=== PATIENT | female | born 1975 | race Caucasian/White ===

== ENCOUNTER 2016-11-16 18:24 | Inpatient (IN) | payer SELFPAY ==
[2016-11-16] MEDS ORDERED: PROPOFOL 100 ML IV PRN (18:38)
[2016-11-16] MEDS ORDERED: ROCURONIUM BROMIDE INJ 50 MG/5 ML VIAL IV ONE ×2 (18:38→19:23)
[2016-11-16] MEDS ORDERED: ETOMIDATE INJ/PF 20 MG/10 ML SDV IV ONE (18:38)
[2016-11-16] MEDS ORDERED: NORMAL SALINE 1000 ML 1,000 ML IV ONE ×2 (18:39→19:28)
--- NOTE | 2016-11-16 18:41 | ER Document Report ---
ED Psych Disorder / Suicide - General Chief Complaint: Overdose Stated Complaint: POSSIBLE OVERDOSE Time Seen by Provider: 11/16/16 18:37 Notes: The patient is a 40-year-old female who presents by EMS after she was found to be altered and unresponsive by her 11-year-old daughter. She had an empty bottle of Flexeril next to her and may have taken 300 mg Flexeril. Family told EMS that the patient has no history of depression or suicide attempts. Arrival to the ER,the patient is very altered and will not respond to painful stimulation. No gag reflex. The decision was made to intubate the patient for airway protection. TRAVEL OUTSIDE OF THE [place] IN LAST 30 DAYS: No - Related Data Allergies/Adverse Reactions: metronidazole [From Flagyl] Allergy (Verified 02/28/16 23:41) tramadol Allergy (Verified 02/28/16 23:41) Past Medical History - General Information source: Emergency Med Personnel Cannot obtain history due to: Altered mental status - Social History Smoking Status: Unknown if Ever Smoked Family History: None Past Surgical History: Reports: Hx Cholecystectomy, Hx Orthopedic Surgery - knee , Hx Tubal Ligation Review of Systems - Review of Systems -: Yes ROS unobtainable due to patient's medical condition Physical Exam - Vital signs Vitals: Pulse Resp Pulse Ox 104 H 17 97 11/16/16 18:24 11/16/16 18:24 11/16/16 18:24 - Notes Notes: PHYSICAL EXAMINATION: GENERAL: Unresponsive. HEAD: Atraumatic, normocephalic. EYES: Pupils 3mm b/l non-reactive, extraocular movements intact, no nystagmus, sclera anicteric, conjunctiva are normal. ENT: no gag reflex, nares patent, oropharynx clear without exudates. Moist mucous membranes. NECK: Normal range of motion, supple without lymphadenopathy LUNGS: Breath sounds clear to auscultation bilaterally and equal. No wheezes rales or rhonchi. HEART: Tachycardic ABDOMEN: Soft, nontender, normoactive bowel sounds. No guarding, no rebound. No masses appreciated. EXTREMITIES: Normal range of motion, no pitting or edema. No cyanosis. NEUROLOGICAL: Unresponsive to painful stimulation, intermittently moves all 4 extremities SKIN: Warm, Dry, normal turgor, no rashes or lesions noted. Course - Re-evaluation Re-evalutation: Pt intubated on arrival to the ER after her decreased mental status and unresponsiveness to painful stimulation. No gag reflex. EMS thinks that the time of ingestion was 17:30. The Flexeril bottle was filled today and all 30 tabs (10 mg each) were missing from it. 11/16/16 18:58 Spoke to [facility] (EFFIE Walsh). Flexeril has some anticholinergic effects with respiratory depressions and AMS. No specific antidotes. Recommends Benzo as needed for agitation and seizures. Half life for Flexeril is 8-37 hours (average 18 hours). Supportive care. 11/16/16 20:[address] Wilson and will admit patient to ICU as Inpatient. - Vital Signs Vital signs: Temp Pulse Resp BP Pulse Ox 97.3 F 104 H 12 102/72 100 11/16/16 19:46 11/16/16 18:24 11/16/16 19:46 11/16/16 19:46 11/16/16 19:46 - Laboratory Result Diagrams: 11/16/16 18:50 11/16/16 18:50 Laboratory results interpreted by me: 11/16/16 11/16/16 18:50 18:50 Seg Neutrophils % 79.9 H Absolute Neutrophils 8.4 H Salicylates < 1.0 L Acetaminophen < 10 L - Diagnostic Test Radiology reviewed: Image reviewed, Reports reviewed - EKG Interpretation by Tx EKG shows normal: Sinus rhythm, [place], Intervals, QRS Complexes, ST-T Waves Procedures - Intubation Orotracheal Time of Intubation: 18:40 Airway evaluation: Normal anatomy Mallampati Classification: Class 1 Medications: Etomidate, Other - Rocuronium Intubation method: Orotracheal Blade type: Levi Blade size: 4 Equipment used: Glidescope ETT size: 7.5 ETT secured at: Teeth ETT secured at (cm): 22 Breath Sounds after Intubation: Equal End tidal CO2 confirmed: Yes Ventilator settings: AC Tidal volume: 500 FiO2: 40 Respirations: 14 PEEP: 5 Post Intubation Xray: Yes Intubation Complications: No complications Critical Care Note - Critical Care Note Total time excluding time spent on procedures (mins): 45 Discharge - Discharge Clinical Impression: Overdose Qualifiers: Encounter type: initial encounter Injury intent: undetermined intent Qualified Code(s): T50.904A - Poisoning by unspecified drugs, medicaments and biological substances, undetermined, initial encounter Respiratory failure Qualifiers: Chronicity: acute Respiratory failure complication: unspecified whether with hypoxia or hypercapnia Qualified Code(s): J96.00 - Acute respiratory failure, unspecified whether with hypoxia or hypercapnia Altered mental state Qualifiers: Altered mental status type: unspecified Qualified Code(s): R41.82 - Altered mental status, unspecified Condition: Serious Disposition: ADMITTED INPATIENT Admitting Provider: [facility] Unit Admitted: ICU
[2016-11-16 19:16] LABS: ABSOLUTE LYMPHOCYTES (AUTO) 1.6 10^3/uL (0.5-4.7); ABSOLUTE MONOCYTES (AUTO) 0.5 10^3/uL (0.1-1.4); ABSOLUTE NEUT (AUTO) 8.4 10^3/uL (1.7-8.2); BASOPHILS % (AUTO) 0.2 % (0-2); EOSINOPHILS % (AUTO) 0.4 % (0-6); HEMATOCRIT 36.7 % (36.0-47.0); HEMOGLOBIN 12.5 g/dL (12.0-15.5); HGB HCT DIFFERENCE 0.8; LYMPHOCYTES % (AUTO) 14.9 % (13-45); MEAN CORPUSCULAR HEMOGLOBIN 31.5 pg (27.0-33.4); MEAN CORPUSCULAR HGB CONC 34.1 g/dL (32.0-36.0); MEAN CORPUSCULAR VOLUME 92 fl (80-97); MONOCYTES % (AUTO) 4.6 % (3-13); RED BLOOD COUNT 3.99 10^6/uL (3.72-5.28); SEGMENTED NEUTROPHILS % (AUTO) 79.9 % (42-78); WHITE BLOOD COUNT 10.5 10^3/uL (4.0-10.5)
[2016-11-16 19:40] LABS: ALANINE AMINOTRANSFERASE 28 U/L (9-52); ALBUMIN 3.9 g/dL (3.5-5.0); ALKALINE PHOSPHATASE 73 U/L (38-126); ANION GAP 13 (5-19); ASPARTATE AMINO TRANSFERASE 21 U/L (14-36); BILIRUBIN,DIRECT 0.4 mg/dL (0.0-0.4); BILIRUBIN,TOTAL 0.9 mg/dL (0.2-1.3); BLOOD UREA NITROGEN 10 mg/dL (7-20); CALCIUM 8.8 mg/dL (8.4-10.2); CARBON DIOXIDE 24 mmol/L (22-30); CHLORIDE 106 mmol/L (98-107); CREATININE RESULT 0.84 mg/dL (0.52-1.25); GLUCOSE 91 mg/dL (75-110); POTASSIUM 3.9 mmol/L (3.6-5.0); SODIUM 143.2 mmol/L (137-145); TOTAL PROTEIN 6.9 g/dL (6.3-8.2)
[2016-11-16 19:42] LABS: APPEARANCE,URINE CLEAR; BILIRUBIN,URINE NEGATIVE (NEGATIVE); GLUCOSE, URINE NEGATIVE (NEGATIVE); KETONES,URINE NEGATIVE (NEGATIVE); LEUKOCYTE ESTERASE,URINE NEGATIVE (NEGATIVE); NITRITE,URINE NEGATIVE (NEGATIVE); PROTEIN,URINE NEGATIVE (NEGATIVE); URINE SPECIFIC GRAVITY 1.013; UROBILINOGEN,URINE NEGATIVE mg/dL (<2.0)
[2016-11-16 19:47] LABS: ALCOHOL < 10 mg/dL (NONE DETECTED)
[2016-11-16 19:56] LABS: URINE BARBITURATES SCREEN NEGATIVE; URINE METHADONE SCREEN NEGATIVE; URINE OPIATES LOW NEGATIVE; URINE PHENCYCLIDINE SCREEN NEGATIVE
[2016-11-16 20:05] LABS: ADD ON TESTING BLD IN LAB ACKNOWLEDGE
[2016-11-16 20:17] LABS: MAGNESIUM 1.9 mg/dL (1.6-2.3)
[2016-11-16] MEDS ORDERED: DEXTROSE 50%-WATER 25 GM/50 ML DISP.SYRIN IV PRN ×2 (21:02)
[2016-11-16] MEDS ORDERED: DEXTROSE 40% GEL 15 GM TUBE PO PRN ×2 (21:02)
[2016-11-16] MEDS ORDERED: GLUCAGON,HUMAN RECOMB 1 MG INJ SUBCUT PRN (21:02)
[2016-11-16] MEDS ORDERED: ACETAMINOPHEN 650 MG SUPP.RECT PR PRN (21:02)
[2016-11-16 21:24] LABS: ARTERIAL BLOOD BASE EXCESS -0.4 mmol/L; ARTERIAL BLOOD O2 SATURATION 98.8 % (94-98)
--- NOTE | 2016-11-16 22:19 | PDOC H&P ---
History of Present Illness Admission Date/PCP: 11/16/16 20:34 PCP Uncertain Patient complains of: OD History of Present Illness: MARGY KINCAID is a 40 year old female with uncertain past medical history, but with reportedly no history of depression or suicide attempts who presents to the emergency room for evaluation of above complaint. Patient has been discussed with emergency room physician who evaluated the patient. Patient was noted to be very altered, with no response to painful stimulation and no gag reflex. Was intubated shortly after arrival by the emergency room physician. Currently on propofol sedation. Patient is thus able able to provide no history whatsoever in terms of acute or chronic events, review of systems, personal habits, family history, etc. No friends or family are present. No old inpatient records available for review. . As best as can be determined, from discussion with emergency room physician, approximately 5:30 PM, she took 10 mg Flexeril, #30 tablets. Has remained hemodynamically stable. No further information available this point in time. Laboratory results are listed in [employer] and are reviewed. X-ray summary results are listed below, with full report reviewed. . EKG reviewed. Social history/personal habits: Reportedly has an 11-year-old child. No further information available this point in time. Allergies/adverse reactions are listed in [employer] and are reviewed. Home medications Home medications initially autopopulated into [employer] may not accurately reflect patient's true medications, dosages, and/or frequencies. information technology auditor has reconciled medications. According to Jacklyn in pharmacy, the only medication she could discover was the Flexeril. REVIEW OF SYSTEMS: See history and present illness. No further information available this point in time. PHYSICAL EXAMINATION: 5 feet 4 inches tall. 92.3 kg. BMI 34.9 kg/m. Blood pressure 102/75. Pulse 89 and regular. Respirations are 12, with patient not breathing over the ventilator. 100% saturation on 40% FiO2. SIMV PRVC ventilator mode, tidal volume 500, PEEP of 5, pressure support 10. Obese otherwise well-developed female appearing approximately her stated age. Intubated and sedated. Does not respond to name. Slight withdrawal with trapezius pinch. Occasional slight movement of her feet and toes. Skin is warm and dry, not hot. No grossly obvious evidence of rash in areas of skin examined. No subcutaneous nodules palpated. ENT: Hearing cannot be adequately evaluated due to her current status. Does not respond to name. No lyman sign. Eyes: No scleral icterus. Pupils equal and reactive to light at 4 mm. [place] conjunctivae. No raccoon eyes. Neck is nontender to palpation. Midline trachea. No palpable thyroid nodule mass enlargement or tenderness. Lymphatic: No palpable cervical or clavicular nodes. Neck and lymphatic exams limited by patient body habitus. Psychiatric: Cannot be adequately evaluated due to her current status. See history and present illness. Lungs: Auscultation reveals clear and equal breath sounds bilaterally. No use of accessory respiratory muscles. Cardiovascular: Heart regular rate and rhythm, without gallop murmur or rub. No carotid or abdominal aortic bruits. No ankle or pedal edema. Faintly palpable dorsalis pedis pulses. Abdomen:soft somewhat obese nontender with positive bowel sounds. Unable to adequately evaluate abdomen for masses or organomegaly due to body habitus. Extremities: Hands and feet are warm and dry. No calf tenderness to compression. No grossly obvious visual evidence of calf swelling. Gentle manipulation of lower extremities fails to reveal any obvious evidence of injury or instability to knees hips or ankles. Upper extremity soft restraints. Palpation of cranium, neck, clavicles, thorax, upper and lower extremities, and pelvis failed to reveal any obvious evidence of injury or instability. Neurologic: No nystagmus. Patellar reflexes absent. No ankle clonus. No rigidity. Absent Babinski. Light touch cannot be adequately evaluated due to her current status. Past Medical History Past Medical History: No information available at present time other than as documented by emergency room physician. Patient cannot provide any information. No old inpatient records available for review. Past Surgical History Past Surgical History: Reports: Cholecystectomy, Orthopedic Surgery - knee, Tubal Ligation Social History Information Source: Emergency Med Personnel, [facility] Records Lives with: Other - Patient cannot provide any information. Smoking Status: Unknown if Ever Smoked Frequency of Alcohol Use: None - Patient cannot provide any information. Drugs: None - Patient cannot provide any information. - Advance Directive Resuscitation Status: Full Code Surrogate healthcare decision maker:: Patient cannot provide any information. Family History Family History: None Parental Family History Reviewed: No - Patient cannot provide any information. Children Family History Reviewed: No - Patient cannot provide any information. Sibling(s) Family History Reviewed.: No - Patient cannot provide any information. Medication/Allergy Home Medications: Cyclobenzaprine HCl [Flexeril 10 mg Tablet] 10 mg PO Q8HP PRN 11/16/16 Allergies/Adverse Reactions: metronidazole [From Flagyl] Allergy (Verified 02/28/16 23:41) tramadol Allergy (Verified 02/28/16 23:41) Physical Exam Vital Signs: Temp Pulse Resp BP Pulse Ox 97.0 F 104 H 12 102/77 100 11/16/16 20:16 11/16/16 18:24 11/16/16 20:16 11/16/16 20:16 11/16/16 20:16 Results Impressions: Chest X-Ray 11/16/16 18:38 IMPRESSION: Endotracheal tube tip overlies the mid trachea approximately 4.7 cm above the level of the anya. Mild subsegmental atelectasis in the medial left lung base. Assessment & Plan - Diagnosis (1) Acute encephalopathy Is this a current diagnosis for this admission?: YesPlan: Likely secondary to overdose. However, per my telephone discussion with on- call tanning solution maker at [place] [facility], will proceed with CT scan of brain without contrast. (2) Cocaine abuse Is this a current diagnosis for this admission?: Yes (3) Overdose Qualifiers: Encounter type: initial encounter Injury intent: undetermined intent Qualified Code(s): T50.904A - Poisoning by unspecified drugs, medicaments and biological substances, undetermined, initial encounter Is this a current diagnosis for this admission?: YesPlan: Intensive care unit admission. IVC papers have been drawn by ER physician. Psychiatric consult. Per my discussion with Dr. Cowart, on-call tanning solution maker at [place] [facility] at 9:40 PM, November 16, 2016, will obtain stat repeat EKG and then every 4 hours thereafter. Bicarb bolus and drip for QRS greater than 100. CT of head. Benzodiazepine for any seizure activity. Currently no evidence of same. Knee high SCDs for DVT prophylaxis, along with subcutaneous Lovenox. Time spent in evaluation and management of patient: 70 critical-care minutes. (4) Respiratory failure Qualifiers: Chronicity: acute Respiratory failure complication: unspecified whether with hypoxia or hypercapnia Qualified Code(s): J96.00 - Acute respiratory failure, unspecified whether with hypoxia or hypercapnia Is this a current diagnosis for this admission?: YesPlan: Serial blood gases. Repeat chest x-ray. Pulmonology consult. - Inpatient Certification Based on my medical assessment, after consideration of the patient's comorbidities, presenting symptoms, or acuity I expect that the services needed warrant INPATIENT care.: Yes I certify that my determination is in accordance with my understanding of Medicare's requirements for reasonable and necessary INPATIENT services [42 CFR 412.3e].: Yes Medical Necessity: Need Close Monitoring Due to Risk of Patient Decompensation, Need For IV Fluids, Need For Continuous Telemetry Monitoring, Risk of Diagnosis Which Will Require Inpatient Eval/Care/Monitoring Post Hospital Care: D/C or Transfer Summary
[2016-11-16] MEDS: PROPOFOL 100 ML IV PRN (22:37)
[2016-11-16] MEDS: FAMOTIDINE INJ/PF 20 MG/2 ML SDV IV SCH (22:57)
[2016-11-16] MEDS: POTASSI CL 20 MEQ/NS 1L 1,000 ML IV PRN (22:57)
[2016-11-16 23:41] LABS: ARTERIAL BLOOD BASE EXCESS -2.3 mmol/L; ARTERIAL BLOOD O2 SATURATION 98.9 % (94-98)
[2016-11-17] MEDS: PROPOFOL 100 ML IV PRN ×3 (02:44→22:42)
[2016-11-17] MEDS ORDERED: RINGERS SOLUTION,LACTATED 1,000 ML IV ONE ×2 (05:28→06:02)
[2016-11-17 05:48] LABS: ABSOLUTE BASOPHILS # (AUTO) 0.1 10^3/uL (0.0-0.2); ABSOLUTE EOSINOPHILS # (AUTO) 0.2 10^3/uL (0.0-0.6); ABSOLUTE LYMPHOCYTES (AUTO) 1.9 10^3/uL (0.5-4.7); ABSOLUTE MONOCYTES (AUTO) 0.7 10^3/uL (0.1-1.4); ABSOLUTE NEUT (AUTO) 5.9 10^3/uL (1.7-8.2); BASOPHILS % (AUTO) 0.6 % (0-2); EOSINOPHILS % (AUTO) 1.8 % (0-6); HEMATOCRIT 34.6 % (36.0-47.0); HEMOGLOBIN 12.1 g/dL (12.0-15.5); HGB HCT DIFFERENCE 1.7; MEAN CORPUSCULAR HEMOGLOBIN 32.4 pg (27.0-33.4); MEAN CORPUSCULAR HGB CONC 35.1 g/dL (32.0-36.0); MEAN CORPUSCULAR VOLUME 92 fl (80-97); RED BLOOD COUNT 3.75 10^6/uL (3.72-5.28); RED CELL DISTRIBUTION WIDTH 12.5 % (11.5-14.0); SEGMENTED NEUTROPHILS % (AUTO) 67.6 % (42-78); WHITE BLOOD COUNT 8.7 10^3/uL (4.0-10.5)
[2016-11-17 05:58] LABS: ALANINE AMINOTRANSFERASE 32 U/L (9-52); ALBUMIN 3.2 g/dL (3.5-5.0); ALKALINE PHOSPHATASE 67 U/L (38-126); ANION GAP 9 (5-19); ASPARTATE AMINO TRANSFERASE 14 U/L (14-36); BILIRUBIN,DIRECT 0.2 mg/dL (0.0-0.4); BILIRUBIN,TOTAL 0.6 mg/dL (0.2-1.3); BLOOD UREA NITROGEN 9 mg/dL (7-20); CALCIUM 8.3 mg/dL (8.4-10.2); CARBON DIOXIDE 23 mmol/L (22-30); CHLORIDE 112 mmol/L (98-107); CREATININE RESULT 0.83 mg/dL (0.52-1.25); GLUCOSE 74 mg/dL (75-110); POTASSIUM 3.6 mmol/L (3.6-5.0); SODIUM 143.5 mmol/L (137-145); TOTAL PROTEIN 5.6 g/dL (6.3-8.2)
[2016-11-17 06:07] LABS: ARTERIAL BLOOD BASE EXCESS -1.7 mmol/L; ARTERIAL BLOOD O2 SATURATION 98.7 % (94-98)
[2016-11-17] MEDS ORDERED: THIAMINE HCL 100 MG in NORMAL SALINE 50 ML IV ONE (06:10)
[2016-11-17] MEDS ORDERED: POTASSI CL 20 MEQ/50 ML RIDER 50 ML IV ONE (06:10)
[2016-11-17] MEDS: POTASSI CL 20 MEQ/NS 1L 1,000 ML IV PRN ×3 (07:27→22:48)
[2016-11-17] MEDS ORDERED: THIAMINE HCL INJ 200 MG/2 ML VIAL ONE (07:32)
--- NOTE | 2016-11-17 11:00 | PDOC PROGRESS REPORT ---
Subjective Progress Note for:: 11/17/16 Subjective:: reason for visit: f/u resp failure, flexeril overdose hospital course: per other providers - "MARGY KINCAID is a 40 year old female with uncertain past medical history, but with reportedly no history of depression or suicide attempts who presents to the emergency room for evaluation of above complaint. Patient has been discussed with emergency room physician who evaluated the patient. Patient was noted to be very altered , with no response to painful stimulation and no gag reflex. Was intubated shortly after arrival by the emergency room physician. Currently on propofol sedation. Patient is thus able able to provide no history whatsoever in terms of acute or chronic events, review of systems, personal habits, family history, etc. No friends or family are present. No old inpatient records available for review. As best as can be determined, from discussion with emergency room physician, approximately 5:30 PM, she took 10 mg Flexeril, #30 tablets. Has remained hemodynamically stable. No further information available this point in time." she remains intubated and altered from the overdose, will not participate in her exam. ROS: unable to obtain due to pt's mental state, sedation Physical Exam Vital Signs: Temp Pulse Resp BP Pulse Ox 97.3 F 82 10 L 106/71 100 11/17/16 08:00 11/16/16 23:00 11/17/16 10:00 11/17/16 09:59 11/17/16 10:00 Intake & Output 11/16/16 11/17/16 11/18/16 06:59 06:59 06:59 Intake Total 957 Output Total 268 690 Balance 689 -690 Weight 88.7 kg General appearance: PRESENT: obese, well-developed, well-nourished. ABSENT: no acute distress - sedated Head exam: PRESENT: atraumatic, normocephalic Eye exam: ABSENT: conjunctival injection, scleral icterus Mouth exam: PRESENT: moist, neck supple Neck exam: ABSENT: JVD, tracheal deviation Respiratory exam: PRESENT: clear to auscultation osvaldo, unlabored. ABSENT: accessory muscle use Cardiovascular exam: PRESENT: RRR. ABSENT: systolic murmur Pulses: PRESENT: normal carotid pulses, normal radial pulses GI/Abdominal exam: PRESENT: normal bowel sounds, soft. ABSENT: guarding, rebound, rigid Extremities exam: ABSENT: clubbing, pedal edema Neurological exam: PRESENT: altered. ABSENT: alert, awake Skin exam: PRESENT: warm. ABSENT: dry Results Laboratory Results: 11/17/16 05:41 11/17/16 05:41 11/16/16 11/17/16 11/17/16 23:30 05:41 05:41 WBC 8.7 RBC 3.75 Hgb 12.1 Hct 34.6 L MCV 92 MCH 32.4 MCHC 35.1 RDW 12.5 Plt Count 146 L Seg Neutrophils % 67.6 Lymphocytes % 22.0 Monocytes % 8.0 Eosinophils % 1.8 Basophils % 0.6 Absolute Neutrophils 5.9 Absolute Lymphocytes 1.9 Absolute Monocytes 0.7 Absolute Eosinophils 0.2 Absolute Basophils 0.1 Carbonic Acid 0.89 L HCO3/H2CO3 Ratio 23:1 ABG pH 7.46 H ABG pCO2 29.7 L ABG pO2 139.3 H ABG HCO3 20.5 ABG O2 Saturation 98.9 H ABG Base Excess -2.3 FiO2 30% Sodium 143.5 Potassium 3.6 Chloride 112 H Carbon Dioxide 23 Anion Gap 9 BUN 9 Creatinine 0.83 Est GFR ( Amer) > 60 Est GFR (Non-Af Amer) > 60 Glucose 74 L Calcium 8.3 L Total Bilirubin 0.6 AST 14 ALT 32 Alkaline Phosphatase 67 Total Protein 5.6 L Albumin 3.2 L 11/17/16 05:58 WBC RBC Hgb Hct MCV MCH MCHC RDW Plt Count Seg Neutrophils % Lymphocytes % Monocytes % Eosinophils % Basophils % Absolute Neutrophils Absolute Lymphocytes Absolute Monocytes Absolute Eosinophils Absolute Basophils Carbonic Acid 1.07 HCO3/H2CO3 Ratio 20:1 ABG pH 7.42 ABG pCO2 35.4 ABG pO2 131.1 H ABG HCO3 22.3 ABG O2 Saturation 98.7 H ABG Base Excess -1.7 FiO2 30% Sodium Potassium Chloride Carbon Dioxide Anion Gap BUN Creatinine Est GFR ( Amer) Est GFR (Non-Af Amer) Glucose Calcium Total Bilirubin AST ALT Alkaline Phosphatase Total Protein Albumin Impressions: Head CT 11/16/16 00:00 IMPRESSION: NORMAL BRAIN CT WITHOUT CONTRAST. Chest X-Ray 11/17/16 07:00 IMPRESSION: New patchiness of the right lower lobe may indicate pneumonia or pulmonary edema. Lines and tubes. Assessment & Plan - Diagnosis (1) Overdose Qualifiers: Encounter type: initial encounter Injury intent: undetermined intent Qualified Code(s): T50.904A - Poisoning by unspecified drugs, medicaments and biological substances, undetermined, initial encounter Is this a current diagnosis for this admission?: YesPlan: stable; no signs of ecg changes though she remains altered. unclear whether accidental or not; awaiting improvement in her condition prior to psych eval (2) Acute encephalopathy Is this a current diagnosis for this admission?: YesPlan: unchanged, multifactorial. continue current care (3) Cocaine abuse Is this a current diagnosis for this admission?: YesPlan: chronicity is unclear (4) Respiratory failure Qualifiers: Chronicity: acute Respiratory failure complication: unspecified whether with hypoxia or hypercapnia Qualified Code(s): J96.00 - Acute respiratory failure, unspecified whether with hypoxia or hypercapnia Is this a current diagnosis for this admission?: YesPlan: stable; 2/2 #1 and could likely extubate if mental state will clear. pulmonary consulted, will defer to dr andrade's expertise - Time Time Spent with patient: 25-34 minutes
[2016-11-17] MEDS: FAMOTIDINE INJ/PF 20 MG/2 ML SDV IV SCH ×2 (11:06→21:11)
--- NOTE | 2016-11-17 14:08 | PSYCHOLOGICAL NOTE ---
Psych Note - Psych Note Psych Note: The patient is a 40-year-old female who presents by EMS after she was found to be altered and unresponsive by her 11-year-old daughter. She had an empty bottle of Flexeril next to her and may have taken 300 mg Flexeril. Family told EMS that the patient has no history of depression or suicide attempts. Arrival to the ER,the patient is very altered and will not respond to painful stimulation. No gag reflex. The decision was made to intubate the patient for airway protection. Patient is currently intubated and unable to engage in evaluation. Evaluation will occur at a later time.
--- NOTE | 2016-11-17 16:31 | PDOC CONSULTATION ---
Consultation Consult Date: 11/17/16 Attending physician:: ASMANTHA BARON Consult reason:: respiratory failure History of Present Illness Admission Date/PCP: 11/16/16 21:02 History of Present Illness: MARGY KINCAID is a 40 year old female with uncertain past medical history, but with reportedly no history of depression or suicide attempts who presents to the emergency room for evaluation of above complaint. Patient has been discussed with emergency no response to painful stimulation and no gag reflex. Was intubated shortly after arrival by the emergency room physician. Currently on propofol sedation. Patient is thus able able to provide no history whatsoever in terms of acute or chronic events, review of systems, personal habits, family history, etc. No friends or family are present. No old inpatient records available for review. approximately 5:30 PM, she took 10 mg Flexeril, #30 tablets. Past Medical History Psychiatric Medical History: Denies: Depression Past Surgical History Past Surgical History: Reports: Cholecystectomy, Orthopedic Surgery - knee, Tubal Ligation Social History Information Source: [facility] Records Lives with: Other - Patient cannot provide any information. Smoking Status: Unknown if Ever Smoked Frequency of Alcohol Use: None Drugs: None - Advance Directive Resuscitation Status: Full Code Family History Family History: None Parental Family History Reviewed: No Children Family History Reviewed: No Sibling(s) Family History Reviewed.: No Medication/Allergy Home Medications: Cyclobenzaprine HCl [Flexeril 10 mg Tablet] 10 mg PO Q8HP PRN 11/16/16 Allergies/Adverse Reactions: metronidazole [From Flagyl] Allergy (Verified 02/28/16 23:41) tramadol Allergy (Verified 02/28/16 23:41) Review of Systems ROS unobtainable: Due to endotracheal tube, Due to mental status Physical Exam Vital Signs: Temp Pulse Resp BP Pulse Ox 97.3 F 82 12 93/64 L 100 11/17/16 08:00 11/16/16 23:00 11/17/16 06:00 11/17/16 05:59 11/17/16 08:00 Intake & Output 11/16/16 11/17/16 11/18/16 06:59 06:59 06:59 Intake Total 957 Output Total 268 415 Balance 689 -415 Weight 88.7 kg General appearance: PRESENT: no acute distress, disheveled, obese, well- developed Head exam: PRESENT: atraumatic, normocephalic Eye exam: PRESENT: conjunctiva pale, EOMI Mouth exam: PRESENT: dry mucosa, neck supple, other - Endotracheal tube in place Neck exam: ABSENT: carotid bruit, JVD, lymphadenopathy, thyromegaly Respiratory exam: PRESENT: decreased breath sounds, rhonchi, symmetrical, unlabored Cardiovascular exam: PRESENT: RRR, +S1, +S2 Pulses: PRESENT: normal radial pulses GI/Abdominal exam: PRESENT: normal bowel sounds, soft. ABSENT: distended, guarding, mass, organolmegaly, rebound, tenderness Rectal exam: PRESENT: deferred Gentrourinary exam: PRESENT: indwelling catheter Musculoskeletal exam: PRESENT: normal inspection Skin exam: PRESENT: dry, warm Results Laboratory Results: 11/17/16 05:41 11/17/16 05:41 11/16/16 11/17/16 11/17/16 23:30 05:41 05:41 WBC 8.7 RBC 3.75 Hgb 12.1 Hct 34.6 L MCV 92 MCH 32.4 MCHC 35.1 RDW 12.5 Plt Count 146 L Seg Neutrophils % 67.6 Lymphocytes % 22.0 Monocytes % 8.0 Eosinophils % 1.8 Basophils % 0.6 Absolute Neutrophils 5.9 Absolute Lymphocytes 1.9 Absolute Monocytes 0.7 Absolute Eosinophils 0.2 Absolute Basophils 0.1 Carbonic Acid 0.89 L HCO3/H2CO3 Ratio 23:1 ABG pH 7.46 H ABG pCO2 29.7 L ABG pO2 139.3 H ABG HCO3 20.5 ABG O2 Saturation 98.9 H ABG Base Excess -2.3 FiO2 30% Sodium 143.5 Potassium 3.6 Chloride 112 H Carbon Dioxide 23 Anion Gap 9 BUN 9 Creatinine 0.83 Est GFR ( Amer) > 60 Est GFR (Non-Af Amer) > 60 Glucose 74 L Calcium 8.3 L Total Bilirubin 0.6 AST 14 ALT 32 Alkaline Phosphatase 67 Total Protein 5.6 L Albumin 3.2 L 11/17/16 05:58 WBC RBC Hgb Hct MCV MCH MCHC RDW Plt Count Seg Neutrophils % Lymphocytes % Monocytes % Eosinophils % Basophils % Absolute Neutrophils Absolute Lymphocytes Absolute Monocytes Absolute Eosinophils Absolute Basophils Carbonic Acid 1.07 HCO3/H2CO3 Ratio 20:1 ABG pH 7.42 ABG pCO2 35.4 ABG pO2 131.1 H ABG HCO3 22.3 ABG O2 Saturation 98.7 H ABG Base Excess -1.7 FiO2 30% Sodium Potassium Chloride Carbon Dioxide Anion Gap BUN Creatinine Est GFR ( Amer) Est GFR (Non-Af Amer) Glucose Calcium Total Bilirubin AST ALT Alkaline Phosphatase Total Protein Albumin Impressions: Head CT 11/16/16 00:00 IMPRESSION: NORMAL BRAIN CT WITHOUT CONTRAST. Chest X-Ray 11/17/16 07:00 IMPRESSION: New patchiness of the right lower lobe may indicate pneumonia or pulmonary edema. Lines and tubes. Assessment & Plan - Diagnosis (1) Overdose Qualifiers: Encounter type: initial encounter Injury intent: undetermined intent Qualified Code(s): T50.904A - Poisoning by unspecified drugs, medicaments and biological substances, undetermined, initial encounter Is this a current diagnosis for this admission?: Yes (2) Respiratory failure Qualifiers: Chronicity: acute Respiratory failure complication: unspecified whether with hypoxia or hypercapnia Qualified Code(s): J96.00 - Acute respiratory failure, unspecified whether with hypoxia or hypercapnia Is this a current diagnosis for this admission?: YesPlan: Supportive care observe possible aspiration pneumonia - Time Critical Time spent with patient: 35 or more minutes - 55 minutes
--- NOTE | 2016-11-17 17:51 | EKG REPORT ---
SEVERITY:- NORMAL ECG - SINUS RHYTHM : Confirmed by: Gabriela Montenegro MD 17-Nov-2016 17:49:56
--- NOTE | 2016-11-17 17:51 | EKG REPORT ---
SEVERITY:- NORMAL ECG - SINUS RHYTHM : Confirmed by: Gabriela Montenegro MD 17-Nov-2016 17:49:49
--- NOTE | 2016-11-17 17:51 | EKG REPORT ---
SEVERITY:- NORMAL ECG - SINUS RHYTHM : Confirmed by: Gabriela Montenegro MD 17-Nov-2016 17:50:08
--- NOTE | 2016-11-17 17:51 | EKG REPORT ---
SEVERITY:- NORMAL ECG - SINUS RHYTHM : Confirmed by: Gabriela Montenegro MD 17-Nov-2016 17:50:01
[2016-11-18] MEDS: PROPOFOL 100 ML IV PRN ×2 (02:51→07:53)
[2016-11-18 05:00] LABS: ABSOLUTE EOSINOPHILS # (AUTO) 0.2 10^3/uL (0.0-0.6); ABSOLUTE LYMPHOCYTES (AUTO) 1.6 10^3/uL (0.5-4.7); ABSOLUTE MONOCYTES (AUTO) 0.8 10^3/uL (0.1-1.4); ABSOLUTE NEUT (AUTO) 8.2 10^3/uL (1.7-8.2); BASOPHILS % (AUTO) 0.4 % (0-2); EOSINOPHILS % (AUTO) 1.9 % (0-6); HEMATOCRIT 34.2 % (36.0-47.0); HGB HCT DIFFERENCE 1.8; LYMPHOCYTES % (AUTO) 14.8 % (13-45); MEAN CORPUSCULAR HEMOGLOBIN 32.6 pg (27.0-33.4); MEAN CORPUSCULAR VOLUME 93 fl (80-97); MONOCYTES % (AUTO) 7.3 % (3-13); RED BLOOD COUNT 3.68 10^6/uL (3.72-5.28); RED CELL DISTRIBUTION WIDTH 13.2 % (11.5-14.0); SEGMENTED NEUTROPHILS % (AUTO) 75.6 % (42-78); WHITE BLOOD COUNT 10.8 10^3/uL (4.0-10.5)
[2016-11-18 05:19] LABS: ALANINE AMINOTRANSFERASE 25 U/L (9-52); ALBUMIN 2.9 g/dL (3.5-5.0); ALKALINE PHOSPHATASE 70 U/L (38-126); ANION GAP 7 (5-19); ASPARTATE AMINO TRANSFERASE 13 U/L (14-36); BILIRUBIN,DIRECT 0.4 mg/dL (0.0-0.4); BILIRUBIN,TOTAL 0.9 mg/dL (0.2-1.3); BLOOD UREA NITROGEN 6 mg/dL (7-20); CALCIUM 7.9 mg/dL (8.4-10.2); CARBON DIOXIDE 24 mmol/L (22-30); CHLORIDE 109 mmol/L (98-107); CREATININE RESULT 0.77 mg/dL (0.52-1.25); GLUCOSE 73 mg/dL (75-110); MAGNESIUM 1.9 mg/dL (1.6-2.3); SODIUM 139.8 mmol/L (137-145); TOTAL PROTEIN 5.6 g/dL (6.3-8.2)
[2016-11-18 06:09] LABS: ARTERIAL BLOOD BASE EXCESS 0.6 mmol/L; ARTERIAL BLOOD O2 SATURATION 98.4 % (94-98)
[2016-11-18] MEDS: POTASSI CL 20 MEQ/NS 1L 1,000 ML IV PRN ×2 (09:48→18:14)
[2016-11-18] MEDS: FAMOTIDINE INJ/PF 20 MG/2 ML SDV IV SCH ×2 (09:49→21:30)
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
[2016-11-18] MEDS: ENOXAPARIN SODIUM INJ 40 MG/0.4 ML DISP.SYRIN SUBCUT SCH (14:42)
[2016-11-18] MEDS ORDERED: ENOXAPARIN SODIUM INJ 40 MG/0.4 ML DISP.SYRIN SUBCUT ONE (15:00)
[2016-11-18] MEDS ORDERED: NORMAL SALINE 1000 ML 1,000 ML IV ONE (16:06)
--- NOTE | 2016-11-18 17:07 | PDOC PROGRESS REPORT ---
Subjective Progress Note for:: 11/18/16 Subjective:: awake responsive Physical Exam Vital Signs: Temp Pulse Resp BP Pulse Ox 97.3 F 81 12 97/64 L 100 11/17/16 08:00 11/17/16 20:00 11/18/16 06:15 11/18/16 06:15 11/18/16 08:00 Intake & Output 11/17/16 11/18/16 11/19/16 06:59 06:59 06:59 Intake Total 957 3125 Output Total 025 4775 Balance 689 -1360 Weight 88.7 kg 91 kg General appearance: PRESENT: no acute distress, disheveled, obese, well- developed Head exam: PRESENT: atraumatic, normocephalic Eye exam: PRESENT: conjunctiva pale Mouth exam: PRESENT: neck supple, other - ET tube Neck exam: ABSENT: carotid bruit, JVD, lymphadenopathy, thyromegaly Respiratory exam: PRESENT: decreased breath sounds, rhonchi, unlabored Cardiovascular exam: PRESENT: RRR, +S1, +S2 Pulses: PRESENT: normal radial pulses GI/Abdominal exam: PRESENT: normal bowel sounds, soft. ABSENT: distended, guarding, mass, organolmegaly, rebound, tenderness Rectal exam: PRESENT: deferred Gentrourinary exam: PRESENT: indwelling catheter Musculoskeletal exam: PRESENT: normal inspection Neurological exam: PRESENT: awake Skin exam: PRESENT: dry, warm Results Laboratory Results: 11/18/16 04:37 11/18/16 04:37 11/18/16 11/18/16 11/18/16 04:37 04:37 06:00 WBC 10.8 H RBC 3.68 L Hgb 12.0 Hct 34.2 L MCV 93 MCH 32.6 MCHC 35.0 RDW 13.2 Plt Count 142 L Seg Neutrophils % 75.6 Lymphocytes % 14.8 Monocytes % 7.3 Eosinophils % 1.9 Basophils % 0.4 Absolute Neutrophils 8.2 Absolute Lymphocytes 1.6 Absolute Monocytes 0.8 Absolute Eosinophils 0.2 Absolute Basophils 0.0 Carbonic Acid 1.19 HCO3/H2CO3 Ratio 21:1 ABG pH 7.42 ABG pCO2 39.4 ABG pO2 120.4 H ABG HCO3 25.0 ABG O2 Saturation 98.4 H ABG Base Excess 0.6 FiO2 30% Sodium 139.8 Potassium 4.0 Chloride 109 H Carbon Dioxide 24 Anion Gap 7 BUN 6 L Creatinine 0.77 Est GFR ( Amer) > 60 Est GFR (Non-Af Amer) > 60 Glucose 73 L Calcium 7.9 L Magnesium 1.9 Total Bilirubin 0.9 AST 13 L ALT 25 Alkaline Phosphatase 70 Total Protein 5.6 L Albumin 2.9 L Impressions: Head CT 11/16/16 00:00 IMPRESSION: NORMAL BRAIN CT WITHOUT CONTRAST. Chest X-Ray 11/18/16 06:00 IMPRESSION: Appropriate support lines and tubes. Relatively clear lungs on today's film. Assessment & Plan - Diagnosis (1) Overdose Qualifiers: Encounter type: initial encounter Injury intent: undetermined intent Qualified Code(s): T50.904A - Poisoning by unspecified drugs, medicaments and biological substances, undetermined, initial encounter Is this a current diagnosis for this admission?: Yes (2) Respiratory failure Qualifiers: Chronicity: acute Respiratory failure complication: unspecified whether with hypoxia or hypercapnia Qualified Code(s): J96.00 - Acute respiratory failure, unspecified whether with hypoxia or hypercapnia Is this a current diagnosis for this admission?: YesPlan: extubate - Time Critical Time spent with patient: 35 or more minutes - 55 min
[2016-11-19] MEDS: POTASSI CL 20 MEQ/NS 1L 1,000 ML IV PRN (01:38)
[2016-11-19 04:43] LABS: ABSOLUTE BASOPHILS # (AUTO) 0.1 10^3/uL (0.0-0.2); ABSOLUTE EOSINOPHILS # (AUTO) 0.3 10^3/uL (0.0-0.6); ABSOLUTE LYMPHOCYTES (AUTO) 1.4 10^3/uL (0.5-4.7); ABSOLUTE MONOCYTES (AUTO) 0.7 10^3/uL (0.1-1.4); ABSOLUTE NEUT (AUTO) 9.6 10^3/uL (1.7-8.2); BASOPHILS % (AUTO) 0.8 % (0-2); EOSINOPHILS % (AUTO) 2.4 % (0-6); HEMATOCRIT 38.5 % (36.0-47.0); HGB HCT DIFFERENCE 0.5; LYMPHOCYTES % (AUTO) 11.4 % (13-45); MEAN CORPUSCULAR HEMOGLOBIN 31.3 pg (27.0-33.4); MEAN CORPUSCULAR HGB CONC 33.7 g/dL (32.0-36.0); MEAN CORPUSCULAR VOLUME 93 fl (80-97); MONOCYTES % (AUTO) 5.7 % (3-13); RED BLOOD COUNT 4.14 10^6/uL (3.72-5.28); RED CELL DISTRIBUTION WIDTH 12.9 % (11.5-14.0); SEGMENTED NEUTROPHILS % (AUTO) 79.7 % (42-78); WHITE BLOOD COUNT 12.1 10^3/uL (4.0-10.5)
[2016-11-19 06:16] LABS: ANION GAP 8 (5-19); BLOOD UREA NITROGEN 7 mg/dL (7-20); CALCIUM 8.4 mg/dL (8.4-10.2); CARBON DIOXIDE 22 mmol/L (22-30); CHLORIDE 110 mmol/L (98-107); CREATININE RESULT 0.78 mg/dL (0.52-1.25); GLUCOSE 91 mg/dL (75-110); MAGNESIUM 1.9 mg/dL (1.6-2.3); PHOSPHORUS 3.2 mg/dL (2.5-4.5); POTASSIUM 4.4 mmol/L (3.6-5.0); SODIUM 139.5 mmol/L (137-145)
[2016-11-19] MEDS: ENOXAPARIN SODIUM INJ 40 MG/0.4 ML DISP.SYRIN SUBCUT SCH (08:44)
[2016-11-19] MEDS: FAMOTIDINE INJ/PF 20 MG/2 ML SDV IV SCH (10:58)
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
[2016-11-19 17:59] VITALS: BP 108/56
--- NOTE | 2016-11-25 19:49 | PDOC PROGRESS REPORT ---
Subjective Progress Note for:: 11/19/16 Subjective:: awake responsive Physical Exam Vital Signs: Temp Pulse Resp BP Pulse Ox 99.1 F 91 0 L 100/75 98 11/19/16 05:39 11/18/16 11:58 11/19/16 06:00 11/19/16 03:15 11/19/16 06:00 Intake & Output 11/18/16 11/19/16 11/20/16 06:59 06:59 06:59 Intake Total 3121 3197 Output Total 9977 7840 Balance -1360 -928 Weight 91 kg 90.1 kg General appearance: PRESENT: no acute distress, disheveled, well-developed Head exam: PRESENT: atraumatic, normocephalic Eye exam: PRESENT: conjunctiva pale Mouth exam: PRESENT: dry mucosa, neck supple Neck exam: ABSENT: carotid bruit, JVD, lymphadenopathy, thyromegaly Respiratory exam: PRESENT: decreased breath sounds, prolonged expiratory phas, rales, rhonchi, symmetrical, unlabored Cardiovascular exam: PRESENT: RRR, +S1, +S2 Pulses: PRESENT: normal radial pulses GI/Abdominal exam: PRESENT: normal bowel sounds, soft. ABSENT: distended, guarding, mass, organolmegaly, rebound, tenderness Rectal exam: PRESENT: deferred Skin exam: PRESENT: dry, warm Results Laboratory Results: 11/19/16 03:54 11/19/16 05:48 11/19/16 11/19/16 11/19/16 03:54 03:54 05:48 WBC 12.1 H RBC 4.14 Hgb 13.0 Hct 38.5 MCV 93 MCH 31.3 MCHC 33.7 RDW 12.9 Plt Count 173 Seg Neutrophils % 79.7 H Lymphocytes % 11.4 L Monocytes % 5.7 Eosinophils % 2.4 Basophils % 0.8 Absolute Neutrophils 9.6 H Absolute Lymphocytes 1.4 Absolute Monocytes 0.7 Absolute Eosinophils 0.3 Absolute Basophils 0.1 Sodium Cancelled 139.5 Potassium Cancelled 4.4 Chloride Cancelled 110 H Carbon Dioxide Cancelled 22 Anion Gap Cancelled 8 BUN Cancelled 7 Creatinine Cancelled 0.78 Est GFR ( Amer) Cancelled > 60 Est GFR (Non-Af Amer) Cancelled > 60 Glucose Cancelled 91 Calcium Cancelled 8.4 Phosphorus Cancelled 3.2 Magnesium Cancelled 1.9 Impressions: Head CT 11/16/16 00:00 IMPRESSION: NORMAL BRAIN CT WITHOUT CONTRAST. Chest X-Ray 11/19/16 06:00 IMPRESSION: No acute findings. Assessment & Plan - Diagnosis (1) Overdose Qualifiers: Encounter type: initial encounter Injury intent: undetermined intent Qualified Code(s): T50.904A - Poisoning by unspecified drugs, medicaments and biological substances, undetermined, initial encounter Is this a current diagnosis for this admission?: Yes (2) Respiratory failure Qualifiers: Chronicity: acute Respiratory failure complication: unspecified whether with hypoxia or hypercapnia Qualified Code(s): J96.00 - Acute respiratory failure, unspecified whether with hypoxia or hypercapnia Is this a current diagnosis for this admission?: Yes
== END 2016-11-19 17:27 | disposition home or self-care (01) | DRG 917 ==
LOC: ER 18:24 → EH 20:34 → UNDOADMIN 20:34 → EH 21:02 → ICU 22:30
PROVIDERS: ADMIT Family Medicine; ATTEND Family Medicine
PROC: 0BH17EZ Insertion of Endotracheal Airway into Trachea, Via Natural or Artificial Opening (ICD-10-PCS; principal; 2016-11-16)
PROC: 5A1945Z Respiratory Ventilation, 24-96 Consecutive Hours (ICD-10-PCS; 2016-11-16)
DX: T48.1X1A Poisoning by skeletal muscle relaxants [neuromuscular blocking agents], accidental (unintentional), initial encounter (principal); J96.00 Acute respiratory failure, unspecified whether with hypoxia or hypercapnia; G92 Toxic encephalopathy; Y92.009 Unspecified place in unspecified non-institutional (private) residence as the place of occurrence of the external cause; F14.10 Cocaine abuse, uncomplicated; G89.29 Other chronic pain; Z88.8 Allergy status to other drugs, medicaments and biological substances; Z98.51 Tubal ligation status; Z78.1 Physical restraint status; Z90.49 Acquired absence of other specified parts of digestive tract
CPT/HCPCS: 36415; 36600; 70450; 71010; 80048; 80053; 80307; 81001; 82803; 82962; 83735; 84100; 84443; 84484; 84703; 85025; 93005; 93010; 94002; 94003; 94799; 99291; J2704; J3411; J3480; J3490; J7030; J7120; S0028

== ENCOUNTER 2016-11-29 17:55 | Emergency (ER) | payer MEDICAID ==
[2016-11-29] MEDS ORDERED: FAMOTIDINE INJ/PF 20 MG/2 ML SDV IV ONE (19:51)
[2016-11-29] MEDS ORDERED: NORMAL SALINE 1000 ML 1,000 ML IV ONE ×2 (19:51→22:45)
[2016-11-29] MEDS ORDERED: MAG HYDROX/AL HYDROX/SIMETH SUSP 30 ML UDCUP PO ONE (19:52)
[2016-11-29] MEDS ORDERED: ACETAMINOPHEN 325 MG TABLET PO ONE (19:52)
[2016-11-29] MEDS ORDERED: ONDANSETRON HCL INJ/PF 4 MG/2 ML SDV IV ONE (19:52)
--- NOTE | 2016-11-29 19:54 | ER Document Report ---
ED Medical Screen (RME) - General Chief Complaint: Abdominal Pain Stated Complaint: STOMACH PAIN Time Seen by Provider: 11/29/16 19:49 Notes: Patient is complaining of stomach pains from the epigastric region to the left abdomen that has been going on for the past 10 days. She says the pain is almost constant and is very sharp in nature. She has had nausea and has been vomiting all the time for the past 10 days. Denies any diarrhea or change in bowel movements. Patient was in this hospital for a drug overdose 2 weeks ago and was intubated at that time. She says she currently has some cough but no chest congestion. Has not noted any fever. Last cycle was November 13. Patient had her gallbladder removed as well as had a tubal ligation. Patient's heart rate in triage is 121. I have measured it myself and get a heart rate of 132 - 136. Patient denies taking any kind of drugs or high caffeine drinks, etc. TRAVEL OUTSIDE OF THE [place] IN LAST 30 DAYS: No - Related Data Allergies/Adverse Reactions: metronidazole [From Flagyl] Allergy (Verified 11/29/16 18:06) tramadol Allergy (Verified 11/29/16 18:06) Past Medical History Renal/ Medical History: Denies: Hx Peritoneal Dialysis Psychiatric Medical History: Denies: Hx Depression Past Surgical History: Reports: Hx Cholecystectomy, Hx Orthopedic Surgery - knee , Hx Tubal Ligation Physical Exam - Vital signs Vitals: Temp Pulse Resp BP Pulse Ox 97.6 F 121 H 22 H 127/93 H 95 11/29/16 18:06 11/29/16 18:06 11/29/16 18:06 11/29/16 18:06 11/29/16 18:06 Course - Vital Signs Vital signs: Temp Pulse Resp BP Pulse Ox 97.6 F 121 H 22 H 127/93 H 95 11/29/16 18:06 11/29/16 18:06 11/29/16 18:06 11/29/16 18:06 11/29/16 18:06
[2016-11-29 20:43] LABS: ABSOLUTE BASOPHILS # (AUTO) 0.1 10^3/uL (0.0-0.2); ABSOLUTE LYMPHOCYTES (AUTO) 2.4 10^3/uL (0.5-4.7); ABSOLUTE MONOCYTES (AUTO) 0.9 10^3/uL (0.1-1.4); ABSOLUTE NEUT (AUTO) 13.7 10^3/uL (1.7-8.2); BASOPHILS % (AUTO) 0.4 % (0-2); EOSINOPHILS % (AUTO) 0.2 % (0-6); HEMATOCRIT 41.5 % (36.0-47.0); HEMOGLOBIN 13.9 g/dL (12.0-15.5); HGB HCT DIFFERENCE 0.2; LYMPHOCYTES % (AUTO) 14.1 % (13-45); MEAN CORPUSCULAR HEMOGLOBIN 30.9 pg (27.0-33.4); MEAN CORPUSCULAR HGB CONC 33.5 g/dL (32.0-36.0); MEAN CORPUSCULAR VOLUME 92 fl (80-97); MONOCYTES % (AUTO) 5.3 % (3-13); RED CELL DISTRIBUTION WIDTH 12.8 % (11.5-14.0); WHITE BLOOD COUNT 17.2 10^3/uL (4.0-10.5)
[2016-11-29] MEDS ORDERED: SUCRALFATE 1 GM TABLET PO ONE (22:45)
[2016-11-29] MEDS ORDERED: PANTOPRAZOLE SODIUM 40 MG VIAL IV ONE (22:45)
[2016-11-29] MEDS ORDERED: LORAZEPAM INJ 2 MG/1 ML VIAL IV ONE (22:46)
[2016-11-29] MEDS ORDERED: HYDROMORPHONE HCL INJ/PF 2 MG/ML AMPULE IV ONE (22:46)
--- NOTE | 2016-11-29 22:54 | ER Document Report ---
ED General - General Chief Complaint: Abdominal Pain Stated Complaint: STOMACH PAIN Time Seen by Provider: 11/29/16 19:49 Mode of Arrival: Ambulatory Information source: Patient TRAVEL OUTSIDE OF THE [place] IN LAST 30 DAYS: No - HPI Notes: Patient is complaining of stomach pains from the epigastric region to the left abdomen that has been going on for the past 10 days. She says the pain is almost constant and is very sharp in nature. She has had nausea and has been vomiting all the time for the past 10 days. Denies any diarrhea or change in bowel movements. Patient was in this hospital for a drug overdose from Flexeril 2 weeks ago and was intubated and extubated on 11/16/16. At the time she was also positive for cocaine. Patient claimed the Flexeril overdose was accidental and related to her taking more than the recommended Flexeril dosage related to her chronic lower back pain. She says she currently has some cough but no chest congestion. Has not noted any fever. Last cycle was November 13. Patient had her gallbladder removed as well as had a tubal ligation. Patient reports that she has had intermittent vomiting with some bright red blood, no coffee ground character. She states vomiting earlier today had a very minimal pink tinge to it. Patient has a history of gastritis and previous bleeding stomach ulcer. She usually takes Celebrex and occasional naproxen, but has not had these in the last 3 weeks. She has been taking intermittent ibuprofen recently however. She does admit to taking Flexeril regularly, but denies any overdose of it. Describes her abdominal pain is mainly midepigastric but some left lower quadrant. - Related Data Allergies/Adverse Reactions: metronidazole [From Flagyl] Allergy (Verified 11/29/16 18:06) tramadol Allergy (Verified 11/29/16 18:06) Home Medications: Current Home Medications Cyclobenzaprine HCl [Flexeril 10 mg Tablet] 10 mg PO Q8HP PRN 11/29/16 [History] Past Medical History - General Information source: Patient - Social History Smoking Status: Never Smoker Frequency of alcohol use: Occasional Drug Abuse: Cocaine Lives with: Spouse/Significant other Family History: None Patient has suicidal ideation: No Patient has homicidal ideation: No Renal/ Medical History: Denies: Hx Peritoneal Dialysis Psychiatric Medical History: Denies: Hx Depression Past Surgical History: Reports: Hx Cholecystectomy, Hx Orthopedic Surgery - knee , Hx Tubal Ligation Review of Systems - Review of Systems Notes: REVIEW OF SYSTEMS: CONSTITUTIONAL : Denies fever, chills, or sweats. EENT: Denies eye, ear, throat, or mouth pain or symptoms. Denies nasal or sinus congestion or discharge. Denies throat, tongue, or mouth swelling or difficulty swallowing. CARDIOVASCULAR: Denies chest pain. Denies palpitations or racing or irregular heart beat. Denies ankle edema. RESPIRATORY: Denies cough, cold, or chest congestion. Denies shortness of breath, difficulty breathing, or wheezing. GASTROINTESTINAL: Denies abdominal distention. Denies diarrhea. Denies blood stools, or per rectum. Denies black, tarry stools. Denies constipation. GENITOURINARY: Denies difficulty urinating, painful urination, burning, frequency, blood in urine, or discharge. FEMALE GENITOURINARY: Denies vaginal bleeding, heavy or abnormal periods, irregular periods. Denies vaginal discharge or odor. MUSCULOSKELETAL: Denies neck pain or stiffness. Denies joint pain or swelling. Reports chronic unchanged lower back pain. SKIN: Denies rash, lesions or sores. HEMATOLOGIC : Denies easy bruising or bleeding. LYMPHATIC: Denies swollen, enlarged glands. NEUROLOGICAL: Denies confusion or altered mental status. Denies passing out or loss of consciousness. Denies dizziness or lightheadedness. Denies headache. Denies weakness or paralysis or loss of use of either side. Denies problems with gait or speech. Denies sensory loss, numbness, or tingling. Denies seizures. PSYCHIATRIC: Patient admits to anxiety. Denies depression, suicidal ideation, or homicidal ideation. ALL OTHER SYSTEMS REVIEWED AND NEGATIVE. Dictation was performed using [employer] voice recognition software Physical Exam - Vital signs Vitals: Temp Pulse Resp BP Pulse Ox 97.6 F 121 H 22 H 127/93 H 95 11/29/16 18:06 11/29/16 18:06 11/29/16 18:11/29/16 18:11/29/16 18:06 - Notes Notes: PHYSICAL EXAMINATION: GENERAL: Well-appearing, well-nourished. Very anxious. HEAD: Atraumatic, normocephalic. EYES: Pupils equal round and reactive to light, extraocular movements intact, conjunctiva are normal. ENT: Nares patent, oropharynx clear without exudates. Moist mucous membranes. NECK: Normal range of motion, supple without lymphadenopathy LUNGS: Breath sounds clear to auscultation bilaterally and equal. No wheezes rales or rhonchi. HEART: Regular rhythm without murmurs. Tachycardic rate of 110 after first liter normal saline bolus. ABDOMEN: Soft, nondistended abdomen. No guarding, no rebound. No masses appreciated. Pain to the midepigastric region predominantly. There is mild pain to the left lower quadrant region. No gross rebound or guarding. Surgical scars from previous abdominal surgeries are well-healed. Female : deferred Musculoskeletal: Normal range of motion, no pitting or edema. No cyanosis. NEUROLOGICAL: Cranial nerves grossly intact. Normal speech, normal gait. Normal sensory, motor exams PSYCH: Anxious. SKIN: Warm, Dry, normal turgor, no rashes or lesions noted. Course - Re-evaluation Re-evalutation: 11/29/16 22:55 Patient was given GI cocktail, Tylenol, normal saline bolus, IV Zofran, IV Pepcid with minimal relief of her discomfort. Patient is ordered Dilaudid, Ativan, Carafate, Protonix and additional normal saline bolus. 11/30/16 01:25 On repeat exam, there was no further abdominal pain, the patient denied any significant nausea and felt stable for discharge. No evidence for pancreatitis, hepatitis, thyroid dysfunction, urinary tract infection, perforated viscus, diverticulitis, aneurysm, mesenteric ischemia, significant GI bleed or anemia. No obvious urinary tract infection. - Vital Signs Vital signs: Temp Pulse Resp BP Pulse Ox 97.6 F 121 H 22 H 127/93 H 95 11/29/16 18:06 11/29/16 18:06 11/29/16 18:06 11/29/16 18:06 11/29/16 18:06 - Laboratory Result Diagrams: 11/29/16 20:21 11/29/16 22:20 Laboratory results interpreted by me: 11/29/16 11/29/16 11/29/16 20:21 20:21 22:20 WBC 17.2 H Seg Neutrophils % 80.0 H Absolute Neutrophils 13.7 H Sodium 146.2 H Chloride 108 H Ur Leukocyte Esterase SMALL H Discharge - Discharge Clinical Impression: Dehydration Gastritis Qualifiers: Gastritis type: other gastritis Chronicity: acute Gastritis bleeding: presence of bleeding unspecified Qualified Code(s): K29.00 - Acute gastritis without bleeding Abdominal pain Qualifiers: Abdominal location: epigastric Qualified Code(s): R10.13 - Epigastric pain Vomiting Qualifiers: Vomiting type: unspecified Vomiting Intractability: non-intractable Nausea presence: with nausea Qualified Code(s): R11.2 - Nausea with vomiting, unspecified Condition: Stable Disposition: HOME, SELF-CARE Instructions: Abdominal Pain ([facility]), Antinausea Medication ([facility]), Intravenous ( IV) Fluids ([facility]), Vomiting ([facility]) Additional Instructions: If abdominal pain continues, then you may need an upper endoscopy and consideration for a Timothy procedure. Prescriptions: Ondansetron [Zofran Odt 4 mg Tablet] 1 tab PO Q8HP PRN #10 tab.rapdis PRN Reason: For Nausea/Vomiting Omeprazole 40 mg PO DAILY #60 capsule.
[2016-11-29 22:56] LABS: ALANINE AMINOTRANSFERASE 31 U/L (9-52); ALBUMIN 4.3 g/dL (3.5-5.0); ALKALINE PHOSPHATASE 93 U/L (38-126); ANION GAP 12 (5-19); ASPARTATE AMINO TRANSFERASE 15 U/L (14-36); BILIRUBIN,DIRECT 0.3 mg/dL (0.0-0.4); BILIRUBIN,TOTAL 0.6 mg/dL (0.2-1.3); BLOOD UREA NITROGEN 15 mg/dL (7-20); CALCIUM 9.2 mg/dL (8.4-10.2); CARBON DIOXIDE 26 mmol/L (22-30); CHLORIDE 108 mmol/L (98-107); CREATININE RESULT 0.79 mg/dL (0.52-1.25); GLUCOSE 108 mg/dL (75-110); SODIUM 146.2 mmol/L (137-145); TOTAL PROTEIN 7.5 g/dL (6.3-8.2)
[2016-11-29 23:24] LABS: THYROID STIMULATING HORMONE 1.12 uIU/mL (0.47-4.68)
[2016-11-29 23:57] LABS: AMORPHOUS SEDIMENT,URINE 1+ /HPF; APPEARANCE,URINE TURBID; BILIRUBIN,URINE NEGATIVE (NEGATIVE); GLUCOSE, URINE NEGATIVE (NEGATIVE); KETONES,URINE NEGATIVE (NEGATIVE); LEUKOCYTE ESTERASE,URINE SMALL (NEGATIVE); NITRITE,URINE NEGATIVE (NEGATIVE); PROTEIN,URINE NEGATIVE (NEGATIVE); URINE SPECIFIC GRAVITY 1.032; UROBILINOGEN,URINE NEGATIVE mg/dL (<2.0)
[2016-11-30 00:05] LABS: URINE METHADONE SCREEN NEGATIVE; URINE OPIATES LOW NEGATIVE; URINE PHENCYCLIDINE SCREEN NEGATIVE
[2016-11-30 00:06] LABS: URINE BARBITURATES SCREEN NEGATIVE
--- NOTE | 2016-11-30 00:25 | RADIOLOGY REPORT (SQ) ---
EXAM DESCRIPTION: CT ABD/PELVIS WITH IV ONLY COMPLETED DATE/TIME: 11/29/2016 11:54 pm REASON FOR STUDY: abd pain midepig and LLQ, mild hematemesis COMPARISON: None. TECHNIQUE: CT scan of the abdomen and pelvis performed using helical scanning technique with dynamic intravenous contrast injection. No oral contrast. Images reviewed with lung, soft tissue, and bone windows. Reconstructed coronal and sagittal MPR images reviewed. Delayed images for evaluation of the urinary system also acquired. All images stored on PACS. All CT scanners at this facility use dose modulation, iterative reconstruction, and/or weight based d osing when appropriate to reduce radiation dose to as low as reasonably achievable (ALARA). [facility]: Dose Right [facility]: CareDose [facility]: Dose Right [facility]: Teradose 4D [facility]: [employer] CONTRAST TYPE AND DOSE: 94mL Isovue 370- low osmolar. RENAL FUNCTION: Creatinine 0.79 RADIATION DOSE: 32.42mGy. LIMITATIONS: None. FINDINGS: LOWER CHEST: Mild bibasilar atelectasis. No pleural effusion. An air-fluid level is seen in the distal esophagus. LIVER: Normal size. No masses or dilated ducts. SPLEEN: Normal size. Subcentimeter low attenuation area at the superior aspect of the spleen, too sm all to be adequately characterized. PANCREAS: No significant calcifications. No adjacent inflammation or peripancreatic fluid collections . Pancreatic duct not dilated. GALLBLADDER: Surgically absent. ADRENAL GLANDS: No significant masses or asymmetry. RIGHT KIDNEY AND URETER: No solid masses. No significant calcifications. No hydronephrosis or hyd roureter. LEFT KIDNEY AND URETER: No solid masses. No significant calcifications. No hydronephrosis or hydr oureter. AORTA AND VESSELS: No abdominal aortic aneurysm. RETROPERITONEUM: No retroperitoneal adenopathy, hemorrhage or masses. BOWEL AND PERITONEAL CAVITY: No dilated bowel loops or inflammatory changes. No free fluid or free ai r. APPENDIX: Normal. PELVIS: The urinary bladder is partially distended. Mild soft tissue stranding is seen around the ur inary bladder. The uterus is present. No free fluid. ABDOMINAL WALL: Small fat containing umbilical hernia. BONES: Mild multilevel degenerative changes in the spine. Degenerative changes also noted at bilater al hip joints. IMPRESSION: Mild soft tissue stranding at the urinary bladder, may be seen with cystitis. Please co rrelate with laboratory values / urinalysis. Air-fluid level in the distal esophagus, suggestive of gastroesophageal reflux. TECHNICAL DOCUMENTATION: JOB ID: [id number] [place]-64 Quality ID # [id number]: Final reports with documentation of one or more dose reduction techniques (e.g., Au tomated exposure control, adjustment of the mA and/or kV according to patient size, use of iterative reconstruction technique) 2010 [employer]- All Rights Reserved
[2016-11-30] MEDS ORDERED: ONDANSETRON ODT 4 MG TAB (6 TAB/DSPK) PO PRN (01:23)
[2016-11-30 01:26] VITALS: BP 109/68
== END 2016-11-30 01:34 | disposition home or self-care (01) ==
LOC: ER 17:55
DX: E86.0 Dehydration (principal); K29.00 Acute gastritis without bleeding; R10.13 Epigastric pain; R11.2 Nausea with vomiting, unspecified; R05 Cough; Z90.49 Acquired absence of other specified parts of digestive tract; Z98.51 Tubal ligation status
CPT/HCPCS: 99284; 96361; 96374; 96375; 36415; 84439; 83690; 84443; 84703; 85025; 80053; 81001; 80307; 74177; J1170; J2060; S0164; J2405; J7030; S0028

== ENCOUNTER 2017-01-27 13:37 | Emergency (ER) | payer MEDICAID ==
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
--- NOTE | 2017-01-27 15:32 | RADIOLOGY REPORT (SQ) ---
EXAM DESCRIPTION: HIP LEFT AP/LATERAL COMPLETED DATE/TIME: 01/27/2017 2:59 pm REASON FOR STUDY: fall COMPARISON: None. NUMBER OF VIEWS: Two views. TECHNIQUE: AP pelvis and additional frog-leg view of the left hip. LIMITATIONS: None. FINDINGS: MINERALIZATION: Normal. LEFT HIP: No fracture or dislocation. No worrisome bone lesions. RIGHT HIP: No fracture or dislocation. No worrisome bone lesions. PUBIS AND ISCHIUM: No fracture. PELVIS: No fracture. SACRUM: No fracture or dislocation. No worrisome bone lesions. LOWER LUMBAR SPINE: No fracture or dislocation. No worrisome bone lesions. No significant disc disea se. SOFT TISSUES: No findings. OTHER: No other significant finding. IMPRESSION: NO RADIOGRAPHIC EVIDENCE OF ACUTE INJURY. TECHNICAL DOCUMENTATION: JOB ID: [id number] [employer]- All Rights Reserved
[2017-01-27] MEDS ORDERED: KETOROLAC TROMETHAMINE 60 MG/2 ML SDV IM ONE (15:34)
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
[2017-01-27 18:11] LABS: ABSOLUTE LYMPHOCYTES (AUTO) 1.8 10^3/uL (0.5-4.7); ABSOLUTE MONOCYTES (AUTO) 0.5 10^3/uL (0.1-1.4); ABSOLUTE NEUT (AUTO) 8.1 10^3/uL (1.7-8.2); BASOPHILS % (AUTO) 0.4 % (0-2); EOSINOPHILS % (AUTO) 0.3 % (0-6); HEMATOCRIT 40.8 % (36.0-47.0); HEMOGLOBIN 14.1 g/dL (12.0-15.5); HGB HCT DIFFERENCE 1.5; LYMPHOCYTES % (AUTO) 17.3 % (13-45); MEAN CORPUSCULAR HEMOGLOBIN 32.6 pg (27.0-33.4); MEAN CORPUSCULAR HGB CONC 34.6 g/dL (32.0-36.0); MEAN CORPUSCULAR VOLUME 94 fl (80-97); MONOCYTES % (AUTO) 5.1 % (3-13); RED BLOOD COUNT 4.32 10^6/uL (3.72-5.28); RED CELL DISTRIBUTION WIDTH 13.1 % (11.5-14.0); SEGMENTED NEUTROPHILS % (AUTO) 76.9 % (42-78); WHITE BLOOD COUNT 10.5 10^3/uL (4.0-10.5)
[2017-01-27 18:25] LABS: APPEARANCE,URINE CLEAR; BILIRUBIN,URINE NEGATIVE (NEGATIVE); GLUCOSE, URINE NEGATIVE (NEGATIVE); KETONES,URINE NEGATIVE (NEGATIVE); LEUKOCYTE ESTERASE,URINE NEGATIVE (NEGATIVE); NITRITE,URINE NEGATIVE (NEGATIVE); PROTEIN,URINE NEGATIVE (NEGATIVE); URINE SPECIFIC GRAVITY 1.004; UROBILINOGEN,URINE NEGATIVE mg/dL (<2.0)
[2017-01-27 18:33] LABS: ALANINE AMINOTRANSFERASE 27 U/L (9-52); ALBUMIN 4.6 g/dL (3.5-5.0); ALKALINE PHOSPHATASE 98 U/L (38-126); ANION GAP 13 (5-19); ASPARTATE AMINO TRANSFERASE 15 U/L (14-36); BILIRUBIN,DIRECT 0.3 mg/dL (0.0-0.4); BILIRUBIN,TOTAL 0.8 mg/dL (0.2-1.3); BLOOD UREA NITROGEN 13 mg/dL (7-20); CALCIUM 9.5 mg/dL (8.4-10.2); CARBON DIOXIDE 26 mmol/L (22-30); CHLORIDE 103 mmol/L (98-107); CREATININE RESULT 0.73 mg/dL (0.52-1.25); GLUCOSE 83 mg/dL (75-110); POTASSIUM 3.9 mmol/L (3.6-5.0); SODIUM 142.3 mmol/L (137-145); TOTAL PROTEIN 7.8 g/dL (6.3-8.2)
[2017-01-27 18:35] LABS: ALCOHOL < 10 mg/dL (NONE DETECTED)
[2017-01-27 18:47] LABS: URINE BARBITURATES SCREEN NEGATIVE; URINE METHADONE SCREEN NEGATIVE; URINE OPIATES LOW NEGATIVE; URINE PHENCYCLIDINE SCREEN NEGATIVE
[2017-01-27] MEDS ORDERED: ONDANSETRON 4 MG TAB.RAPDIS PO ONE (20:59)
--- NOTE | 2017-01-28 03:38 | EKG REPORT ---
SEVERITY:- NORMAL ECG - SINUS RHYTHM : Confirmed by: Gabriela Montenegro MD 28-Jan-2017 03:37:39
--- NOTE | 2017-01-28 06:28 | ER Document Report ---
Doctor's Note Notes: 01/28/17 06:27 Patient reevaluated in the morning, it appears patient had an episode last night where she was vomiting on herself and nurses were concerned she may have taken a medication that was given to her from a visitor, patient otherwise in the morning is alert oriented. I asked the patient if she understood why I had to keep her overnight, she states she does and that she is sorry. At this time patient denies any suicidal ideations still does not want police involved. I explained to her that we would wait until mental health reevaluate her in the morning before disposition was decided upon
[2017-01-28] MEDS ORDERED: PREDNISONE 20 MG TABLET PO ONE (07:40)
[2017-01-28 12:36] VITALS: BP 109/77
== END 2017-01-28 12:36 | disposition home or self-care (01) ==
LOC: ER 13:37
DX: M25.552 Pain in left hip (principal); M54.5 Low back pain; W19.XXXA Unspecified fall, initial encounter; F19.90 Other psychoactive substance use, unspecified, uncomplicated
CPT/HCPCS: 93005; 99284; 36415; 80307 ×4; 84703; 85025; 80053; 81001; 73502; 93010; S0119; J7512

== ENCOUNTER → 2017-12-14 | Outpatient (CLI) | payer BC ==
[2017-12-14 11:37] LABS: ABSOLUTE EOSINOPHILS # (AUTO) 0.1 10^3/uL (0.0-0.6); ABSOLUTE LYMPHOCYTES (AUTO) 2.1 10^3/uL (0.5-4.7); ABSOLUTE MONOCYTES (AUTO) 0.6 10^3/uL (0.1-1.4); ABSOLUTE NEUT (AUTO) 7.6 10^3/uL (1.7-8.2); BASOPHILS % (AUTO) 0.3 % (0-2); EOSINOPHILS % (AUTO) 0.7 % (0-6); HEMATOCRIT 41.2 % (36.0-47.0); HEMOGLOBIN 14.3 g/dL (12.0-15.5); LYMPHOCYTES % (AUTO) 20.3 % (13-45); MEAN CORPUSCULAR HEMOGLOBIN 31.8 pg (27.0-33.4); MEAN CORPUSCULAR HGB CONC 34.6 g/dL (32.0-36.0); MEAN CORPUSCULAR VOLUME 92 fl (80-97); MONOCYTES % (AUTO) 6.1 % (3-13); PLATELET COUNT 192 10^3/uL (150-450); RED BLOOD COUNT 4.49 10^6/uL (3.72-5.28); RED CELL DISTRIBUTION WIDTH 12.6 % (11.5-14.0); SEGMENTED NEUTROPHILS % (AUTO) 72.6 % (42-78); TOTAL CELLS COUNTED % (AUTO) 100 %; WHITE BLOOD COUNT 10.5 10^3/uL (4.0-10.5)
[2017-12-14 12:01] LABS: ALANINE AMINOTRANSFERASE 26 U/L (9-52); ALBUMIN 4.5 g/dL (3.5-5.0); ALKALINE PHOSPHATASE 79 U/L (38-126); ANION GAP 10 (5-19); ASPARTATE AMINO TRANSFERASE 20 U/L (14-36); BILIRUBIN,DIRECT 0.2 mg/dL (0.0-0.4); BLOOD UREA NITROGEN 16 mg/dL (7-20); CALCIUM 9.4 mg/dL (8.4-10.2); CARBON DIOXIDE 28 mmol/L (22-30); CHLORIDE 106 mmol/L (98-107); GLUCOSE 79 mg/dL (75-110); POTASSIUM 4.3 mmol/L (3.6-5.0); SODIUM 143.9 mmol/L (137-145); TOTAL PROTEIN 7.6 g/dL (6.3-8.2); TRIGLYCERIDES 94 mg/dL (<150)
[2017-12-14 12:12] LABS: DIRECT LDL 90 mg/dL (<100)
== END ==
LOC: OD 10:22
PROVIDERS: ATTEND Nurse Practitioner Family
DX: Z00.00 Encounter for general adult medical examination without abnormal findings (principal); E66.01 Morbid (severe) obesity due to excess calories; Z68.36 Body mass index [BMI] 36.0-36.9, adult
CPT/HCPCS: 36415; 80053; 80061; 83036; 84443; 85025

== ENCOUNTER → 2019-10-07 | Outpatient (CLI) | payer OTHER ==
[2019-10-07 10:33] VITALS: BP 106/57
--- NOTE | 2019-10-07 10:33 | ER RDC ASSESSMENT REPORT ---
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 [facility] - Symptoms Subjective Fever([place] feverish): No Chills: No Muscule Aches: No Runny Nose: No Sore Throat: Yes --How many day(s)?: Darted last week but improving had symptoms for only about 2 days Cough (New or worsening chronic cough): Yes Shortness of breath: Yes Nausea or Vomiting: No Headache: No Abdominal Pain: No Diarrhea(3 or more loose stools in last 24 hours): No - Do you have any of the following Chronic lung disease: Asthma or emphysema or COPD: No Cystic Fibrosis: No Diabetes: No High Blood Pressure: No Cardiovascular Disease: No Chronic Kidney Disease: No Chronic Liver Disease: No Chronic blood disorder like Sickle Cell Disease: No Weak immune system due to disease or medication: No Neurologic condition that limits movement: No Developmental delay - Moderate to Severe: No Recent (within past 2 weeks) or current : No Morbid Obesity (>100 pounds over ideal weight): No Obesity Comment: Height 5 feet 4 inches weight 201 pounds - Objective Temperature: 99.7 F Pulse Rate: 77 Respiratory Rate: 20 Blood Pressure: 106/57 O2 Sat by Pulse Oximetry: 98 Objective: Given above, testing performed: If Testing Performed: Test Specimen Type Sent to General - General Information source: Patient Notes: Patient here for Covid testing. Patient reports has been having respiratory symptoms since about September 30, 2019. States does not have issues with allergies. Reports had a sore throat for two days and has improved. States did have a cough with SOB and chest heaviness. mostly resolved but does have a dry cough with a deep breath. - HPI Onset: Last week - Related Data Allergies/Adverse Reactions: metronidazole [From Flagyl] Allergy (Verified 01/27/17 13:43) tramadol Allergy (Verified 01/27/17 13:43) Past Medical History - Social History Smoking Status: Never Smoker Family History: None, Reviewed & Not Pertinent Renal/ Medical History: Denies: Hx Peritoneal Dialysis Musculoskeletal Medical History: Reports Hx Arthritis Psychiatric Medical History: Denies: Hx Depression Past Surgical History: Reports: Hx Cholecystectomy, Hx Orthopedic Surgery - R knee, Hx Tubal Ligation Physical Exam - General General appearance: Appears well, Alert In distress: None Notes: PHYSICAL EXAMINATION: GENERAL: Well-appearing and in no acute distress. HEAD: Atraumatic, normocephalic. EYES: sclera anicteric, conjunctiva are normal. ENT: nares patent. Moist mucous membranes. NECK: Normal range of motion, supple without lymphadenopathy LUNGS: CTAB and equal. No wheezes rales or rhonchi. resp even and unlabored. lung sounds clear. Noted one time dry cough with deep breath. HEART: Regular rate and rhythm without murmurs ABDOMEN: Soft, nontender, normal bowel sounds, no guarding. EXTREMITIES: No cyanosis. NEUROLOGICAL: Normal speech. PSYCH: Normal mood, normal affect. SKIN: Warm, Dry, normal turgor, no rashes or lesions noted Diagnostic Results Laboratory Results: Patient informed of negative rapid strep and negative rapid flu results. Pending strep culture, pending COVID Testing results. Patient provided COVID instructions to include: As a person under investigation for Covid 19, the [place] department of Health and Human Services, division of public health advises you to adhere to the following guidance until your test results are reported to you. If your test result is positive, you will receive additional information from your provider and your local health department at that time. Remain at home until you are cleared by the health provider or public health authorities. Keep a log of visitors to your home, notify any visitors to your home of your isolation status. If you plan to move to a new address or leave the [facility], notify the local health department in your County. Call your doctor or seek care if you have an urgent medical need. Before seeking medical care, call ahead to get instructions from the provider before arriving at the medical office clinic or hospital. Notify them that you are being tested for the virus that causes Covid 19 so that arrangements can be made, as necessary, to prevent transmission to others in the healthcare setting. Next, notify the local health department in your county. If a medical emergency arises and you need to call 911, inform the first responders that you are being tested for the virus that causes Covid 19. Next, notify the local health department in your county. Patient Education/Counseling Counseling/Education: Patient presents with upper respiratory symptoms worrisome for possible Covid 19. Patient does not have emergency worring symptoms such as difficulty breathing, shortness of breath, chest pain, pressure, confusion or cyanosis. Patient appears suitable for discharge. Patient's vital signs are stable and patient is nontoxic in appearance. Good return precautions have been discussed with patient, patient verbalized understanding and is agreeable with discharge plan of care at this time. C Discharge - Discharge Clinical Impression: COVID - 19 SCREENING Condition: Stable Disposition: Home; Selfcare
[2019-10-07 10:55] LABS: A TYPE INFLUENZA AG NEGATIVE (NEGATIVE); B INFLUENZA AG NEGATIVE (NEGATIVE)
== END ==
LOC: RDC 09:26
PROVIDERS: ATTEND Nurse Practitioner Family
DX: Z20.828 Contact with and (suspected) exposure to other viral communicable diseases (principal); R06.02 Shortness of breath; J02.9 Acute pharyngitis, unspecified; R05 Cough; Z88.6 Allergy status to analgesic agent; Z88.8 Allergy status to other drugs, medicaments and biological substances
CPT/HCPCS: 87070; 87635; 87804; 87880; 99211